=== PATIENT | male | born 1990 | race African-American/Black ===

== ENCOUNTER 2022-08-14 21:47 | Emergency (ER) | payer SELFPAY ==
[~2022-08-14] VITALS: Ht 188 cm; Wt 70.0 kg
[2022-08-14] MEDS ORDERED: IPRATROPIUM BROM 0.5 MG/2.5ML INH SOL NEB ONE (22:00)
[2022-08-14] MEDS ORDERED: ALBUTEROL SULF 2.5 MG/0.5ML(0.5%) NEB SOLN NEB ONE (22:00)
[2022-08-14] MEDS ORDERED: methylPREDNISolone SOD SUCC 125 MG/2 ML VL IV ONE (22:15)
[2022-08-14] MEDS ORDERED: SODIUM CHLORIDE 0.9% 1,000 ML IV ONE (22:15)
[2022-08-14 22:25] VITALS: BP 109/73
[2022-08-14 23:47] LABS: Basophils # (auto) 0.1 10 ^3/uL (0-0.2); Basophils % (auto) 0.9 % (0.0-2.0); Eosinophils # (auto) 0.5 10 ^3/uL (0-0.8); Hematocrit 40.9 % (41.0-53.0); Hemoglobin 13.6 g/dL (13.5-17.5); Lymphocytes # (auto) 2.4 10 ^3/uL (0.4-5.4); Mean Corpuscular Hemoglobin 28.8 pg (28.0-32.0); Mean Corpuscular Hgb Conc. 33.2 g/dL (32.0-36.0); Mean Corpuscular Volume 86.6 fL (80.0-100.0); Monocytes # (auto) 0.5 10 ^3/uL (0-1.3); Monocytes % (auto) 8.4 % (0.0-12.0); Neutrophils # (auto) 2.9 10 ^3/uL (1.6-8.6); Neutrophils % (auto) 45.7 % (37.0-80.0); Nucleated Red Blood Cells % 0.1 %; Red Blood Cells 4.72 10^6/uL (4.5-5.90); Red Cell Distribution Width 13.2 % (11.8-14.3); White Blood Cell 6.4 10^3/uL (4.4-10.8)
[2022-08-15] MEDS ORDERED: ALBU108A5 IN ×2 (01:05→01:07)
[2022-08-15] MEDS ORDERED: PRED20TA2 PO ×2 (01:05→01:07)
== END 2022-08-15 01:18 | disposition left against medical advice (07) ==
LOC: ER 21:47
DX: R06.00 Dyspnea, unspecified (principal); E86.0 Dehydration; I95.9 Hypotension, unspecified; R09.02 Hypoxemia; Z53.29 Procedure and treatment not carried out because of patient's decision for other reasons
CPT/HCPCS: 36415; 71045; 84484; 85025; 93005; 94640; 96361; 96374; 99285; J2930; J7030; J7644